=== PATIENT | female | born 1965 | race Caucasian/White ===

== ENCOUNTER 2024-05-19 18:50 | Inpatient (IN) | payer BC ==
[~2024-05-19] VITALS: Ht 162.6 cm; Wt 56.7 kg
[2024-05-19 19:12] LABS: BASOPHILS % (AUTO) 0.6 % (0.0-2.0); EOSINOPHILS % (AUTO) 0.6 % (0.0-7.0); HEMATOCRIT 39.8 % (31.2-41.9); HEMOGLOBIN 13.2 g/dL (10.9-14.3); LYMPHOCYTES # (AUTO) 1.6 K/uL (0.8-4.8); LYMPHOCYTES % (AUTO) 37.9 % (20.5-51.5); MEAN CORPUSCULAR HEMOGLOBIN 30.3 uug (24.7-32.8); MEAN CORPUSCULAR HGB CONC 33 g/dL (32.3-35.6); MEAN CORPUSCULAR VOLUME 91.3 fL (75.5-95.3); MONOCYTES # (AUTO) 0.7 K/uL (0.1-1.30); MONOCYTES % (AUTO) 16.5 % (0.0-11.0); NEUTROPHILS # (AUTO) 1.9 K/uL (1.8-8.9); NEUTROPHILS % (AUTO) 44.4 % (38.5-71.5); PLATELET COUNT (AUTO) 218 K/uL (179-408); RED BLOOD CELL COUNT(AUTO) 4.35 MIL/uL (3.63-4.92); RED CELL DISTRIBUTION WIDTH 14.9 % (12.3-17.7); WHITE BLOOD COUNT (AUTO) 4.2 K/uL (3.8-11.8)
[2024-05-19 19:15] LABS: DIFFERENTIAL COMMENT 1
[2024-05-19 19:19] LABS: BASOPHILS % (MANUAL) 0 % (0-2); EOSINOPHILS % (MANUAL) 1 % (0-8); LYMPHOCYTES % (MANUAL) 45 % (20-40); MONOCYTES % (MANUAL) 9 % (2-10); NEUTROPHILS % (MANUAL) 45 % (42-75)
[2024-05-19 19:20] LABS: CALCIUM 9.1 mg/dL (8.5-10.1); CARBON DIOXIDE 25 mmol/L (21-32); CHLORIDE 91 mmol/L (98-107); CREATININE 0.7 mg/dL (0.6-1.3); GLUCOSE 96 mg/dL (74-106); SODIUM SERUM 128 mmol/L (136-145); UREA NITROGEN, BLOOD 5 mg/dL (7-18)
[2024-05-19 19:24] LABS: MAGNESIUM 1.9 mg/dL (1.8-2.4); PHOSPHOROUS 2.8 mg/dL (2.5-4.9); POTASSIUM 2.6 mmol/L (3.5-5.1)
[2024-05-19 19:27] LABS: ALANINE AMINOTRANSFERASE 24 U/L (14-59); ALBUMIN 3.9 g/dL (3.4-5.0); ALKALINE PHOSPHATASE 54 U/L (50-136); ASPARTATE AMINOTRANSFERASE 17 U/L (15-37); BILIRUBIN,DIRECT 0.1 mg/dL (0.0-0.2); BILIRUBIN,TOTAL 0.4 mg/dL (0.2-1.0); TOTAL PROTEIN, SERUM 6.4 g/dL (6.4-8.2)
[2024-05-19] MEDS ORDERED: GABA-532 PO (19:40)
[2024-05-19] MEDS ORDERED: IBUP-76 PO (19:40)
[2024-05-19] MEDS ORDERED: MIRT-121 PO (19:40)
[2024-05-19] MEDS ORDERED: LISI10TA29 PO (19:40)
[2024-05-19] MEDS ORDERED: LINA145C PO (19:40)
[2024-05-19] MEDS ORDERED: CEFD300C3 PO (19:40)
[2024-05-19] MEDS ORDERED: MAGN100T PO (19:40)
[2024-05-19] MEDS ORDERED: POLY17PO4 PO (19:40)
[2024-05-19] MEDS ORDERED: DOCU-141 PO (19:40)
[2024-05-19] MEDS ORDERED: FLUO40CA49 PO (19:40)
[2024-05-19] MEDS ORDERED: OXCA150T5 PO (19:40)
[2024-05-19] MEDS ORDERED: POTASSIUM CHLORIDE 100 ML ONE (19:47)
[2024-05-19] MEDS ORDERED: POTASSIUM CHLORIDE 20 MEQ TAB.PRT.SR ONE (19:47)
[2024-05-19] MEDS: POTASSIUM CHLORIDE 20 MEQ TAB.PRT.SR PO ONE (19:48)
[2024-05-19] MEDS: POTASSIUM CHLORIDE 50 ML IV SCH (19:48)
[2024-05-19] MEDS ORDERED: LORAZEPAM 2 MG/1 ML VIAL ONE (20:12)
[2024-05-19] MEDS: LORAZEPAM 2 MG/1 ML VIAL IV ONE (20:20)
[2024-05-19 20:23] LABS: *BILIRUBIN,URIN 1+ (NEGATIVE); *BLOOD, URINE NEGATIVE (NEGATIVE); *CLARITY,URINE CLEAR (CLEAR); *COLOR,URINE YELLOW (YELLOW); *KETONES,URINE 3+ (NEGATIVE); *PROTEIN,URINE 1+ (NEGATIVE); *UROBILINOGEN,URINE 0.2 E.U./dl (NORMAL); LEUKOCYTE ESTERASE ,URINE TRACE (NEGATIVE); NITRITE, URINE NEGATIVE (NEGATIVE); UGLUCOSE NEGATIVE (NEGATIVE)
[2024-05-19 20:24] LABS: RBC,URINE 0-3 /HPF (0-3); WBC,URINE 0-3 /HPF (0-3)
[2024-05-19] MEDS: IV NORMAL SALINE 1000 ML BAG IV ONE (20:32)
[2024-05-19] MEDS: DICYCLOMINE HCL 20 MG/2 ML AMPUL IM SCH (21:18)
[2024-05-19] MEDS ORDERED: DICYCLOMINE HCL LIQ 10 MG/5 ML UDC ONE (21:21)
[2024-05-19] MEDS ORDERED: GABAPENTIN 100 MG CAPSULE PO PRN (21:30)
[2024-05-19] MEDS ORDERED: ACETAMINOPHEN 325 MG TABLET PO PRN (21:30)
[2024-05-19] MEDS ORDERED: ONDANSETRON 4 MG/2 ML VIAL IV PRN (21:30)
[2024-05-19] MEDS ORDERED: TEMAZEPAM 15 MG CAPSULE PO PRN (21:30)
[2024-05-19] MEDS ORDERED: LORAZEPAM 2 MG/1 ML VIAL IV PRN (21:30)
[2024-05-19] MEDS ORDERED: ENALAPRILAT DIHYDRATE 1.25 MG/1 ML VIAL IV PRN (21:45)
[2024-05-19] MEDS: MIRTAZAPINE 15 MG TABLET PO SCH (23:38)
[2024-05-20 00:29] VITALS: BP 122/71; TEMP 97.8; O2SAT 91
[2024-05-20] MEDS ORDERED: IV 0.9% SODIUM CHLORID+ 20 KCL 1,000 ML ONE (00:47)
[2024-05-20] MEDS: POTASSIUM CHLORIDE 20 MEQ in IV NS 1000 ML 1,000 ML IV PRN (00:54)
[2024-05-20] MEDS: HYDROCODONE/APAP 5-325MG TABLET PO PRN (01:02)
[2024-05-20 04:34] VITALS: BP 118/84; TEMP 97.7; O2SAT 94
[2024-05-20] MEDS: PANTOPRAZOLE SODIUM 40 MG TABLET.DR PO SCH (06:13)
[2024-05-20 07:19] LABS: BASOPHILS % (AUTO) 0.6 % (0.0-2.0); EOSINOPHILS % (AUTO) 0.9 % (0.0-7.0); HEMATOCRIT 38.3 % (31.2-41.9); HEMOGLOBIN 12.9 g/dL (10.9-14.3); LYMPHOCYTES # (AUTO) 1.4 K/uL (0.8-4.8); LYMPHOCYTES % (AUTO) 28.5 % (20.5-51.5); MEAN CORPUSCULAR HEMOGLOBIN 30.9 uug (24.7-32.8); MEAN CORPUSCULAR HGB CONC 34 g/dL (32.3-35.6); MEAN CORPUSCULAR VOLUME 92.1 fL (75.5-95.3); MONOCYTES # (AUTO) 0.5 K/uL (0.1-1.30); MONOCYTES % (AUTO) 10.9 % (0.0-11.0); NEUTROPHILS # (AUTO) 2.8 K/uL (1.8-8.9); NEUTROPHILS % (AUTO) 59.1 % (38.5-71.5); PLATELET COUNT (AUTO) 185 K/uL (179-408); RED BLOOD CELL COUNT(AUTO) 4.16 MIL/uL (3.63-4.92); RED CELL DISTRIBUTION WIDTH 14.6 % (12.3-17.7); WHITE BLOOD COUNT (AUTO) 4.8 K/uL (3.8-11.8)
[2024-05-20 07:36] LABS: DIFFERENTIAL COMMENT 1
[2024-05-20 07:38] LABS: BILIRUBIN,TOTAL 0.3 mg/dL (0.2-1.0); CALCIUM 7.7 mg/dL (8.5-10.1); CREATININE 0.5 mg/dL (0.6-1.3); MAGNESIUM 2.1 mg/dL (1.8-2.4); POTASSIUM 3.6 mmol/L (3.5-5.1); TOTAL PROTEIN, SERUM 5.5 g/dL (6.4-8.2)
[2024-05-20] MEDS: LISINOPRIL 10 MG TABLET PO SCH (08:28)
[2024-05-20] MEDS: FLUOXETINE HCL 20 MG CAPSULE PO SCH (08:29)
[2024-05-20] MEDS: LORAZEPAM 2 MG/1 ML VIAL IV PRN (08:30)
[2024-05-20 09:41] LABS: THYROID STIMULATING HORMONE 2.104 mIU/mL (0.358-3.740)
[2024-05-20 12:00] VITALS: BP 119/77; TEMP 97.6
[2024-05-20] MEDS: busPIRone 5 MG TABLET PO SCH (12:08)
[2024-05-20] MEDS: GABAPENTIN 300 MG CAPSULE PO PRN (13:03)
[2024-05-20] MEDS ORDERED: IOHEXOL 350 100 ML INFUS..BTL ONE (14:52)
[2024-05-20] MEDS ORDERED: IV NORMAL SALINE 250 ML IV ONE (14:52)
[2024-05-20] MEDS ORDERED: SWABABLE VALVE TRANSFER SET EA MC ONE (14:52)
[2024-05-20 15:22] LABS: *AMPHETAMINE, URINE NEGATIVE (NEGATIVE); *BARBITURATE, URINE POSITIVE (NEGATIVE); *BENZODIAZEPINE, URINE NEGATIVE (NEGATIVE); *CANNABINOID, URINE NEGATIVE (NEGATIVE); *COCCAINE, URINE NEGATIVE (NEGATIVE); *OPIATE, URINE POSITIVE (NEGATIVE); *PHENCYCLIDINE SCREEN,URINE NEGATIVE (NEGATIVE)
[2024-05-20 15:44] LABS: FENTANYL, URINE NEGATIVE (NEGATIVE)
[2024-05-20 16:00] VITALS: BP 109/67; TEMP 97; O2SAT 96
[2024-05-20] MEDS ORDERED: OXCA300T4 PO (16:53)
[2024-05-20] MEDS ORDERED: OXCA150T5 PO (16:53)
[2024-05-20 19:58] VITALS: BP 95/58; TEMP 98; O2SAT 94
[2024-05-20] MEDS: OXCARBAZEPINE 300 MG TABLET PO SCH (22:18)
[2024-05-21 00:44] VITALS: BP 104/67; TEMP 98.2; O2SAT 97
[2024-05-21 05:46] VITALS: BP 122/77; TEMP 97.7; O2SAT 96
[2024-05-21 06:42] LABS: BASOPHILS % (AUTO) 0.6 % (0.0-2.0); EOSINOPHILS # (AUTO) 0.1 K/uL (0.0-0.7); EOSINOPHILS % (AUTO) 2.7 % (0.0-7.0); HEMATOCRIT 37.9 % (31.2-41.9); LYMPHOCYTES # (AUTO) 1.6 K/uL (0.8-4.8); LYMPHOCYTES % (AUTO) 36.7 % (20.5-51.5); MEAN CORPUSCULAR HEMOGLOBIN 31.8 uug (24.7-32.8); MEAN CORPUSCULAR HGB CONC 34 g/dL (32.3-35.6); MEAN CORPUSCULAR VOLUME 92.9 fL (75.5-95.3); MONOCYTES # (AUTO) 0.7 K/uL (0.1-1.30); MONOCYTES % (AUTO) 14.8 % (0.0-11.0); NEUTROPHILS % (AUTO) 45.2 % (38.5-71.5); PLATELET COUNT (AUTO) 189 K/uL (179-408); RED BLOOD CELL COUNT(AUTO) 4.08 MIL/uL (3.63-4.92); RED CELL DISTRIBUTION WIDTH 15.3 % (12.3-17.7); WHITE BLOOD COUNT (AUTO) 4.5 K/uL (3.8-11.8)
[2024-05-21 06:59] LABS: DIFFERENTIAL COMMENT 1
[2024-05-21 07:13] LABS: ALBUMIN 2.7 g/dL (3.4-5.0); BILIRUBIN,DIRECT 0.1 mg/dL (0.0-0.2); BILIRUBIN,TOTAL 0.2 mg/dL (0.2-1.0); CREATININE 0.5 mg/dL (0.6-1.3); POTASSIUM 4.2 mmol/L (3.5-5.1); TOTAL PROTEIN, SERUM 5.3 g/dL (6.4-8.2)
[2024-05-21 08:10] LABS: AFP, TUMOR MARKER 9.1 ng/mL (0.0-9.2); CARBOHYDRATE ANTIGEN, 19-9 <2 U/mL (0-35); CARCINOEMBRYONIC AG (CEA) 5.5 ng/mL (0.0-4.7); HEPATITIS B CORE AB, IgM Negative (Negative); HEPATITIS B CORE AB, TOTAL Negative (Negative); HEPATITIS B SURFACE AB, QUAL Non Reactive (.); HEPATITIS B SURFACE AG Negative (Negative); HEPATITIS C VIRUS ANTIBODY Non Reactive (Non Reactive)
[2024-05-21] MEDS: OXCARBAZEPINE 150 MG TABLET PO SCH (08:37)
[2024-05-21] MEDS: MIRALAX 17 GM POWD.PACK PO PRN (10:15)
[2024-05-21] MEDS ORDERED: SWABABLE VALVE TRANSFER SET EA MC ONE (11:51)
[2024-05-21] MEDS ORDERED: IV NORMAL SALINE 250 ML IV ONE (11:51)
[2024-05-21] MEDS ORDERED: IOHEXOL 300MG/ML 100 ML INFUS..BTL ONE (11:51)
[2024-05-21] MEDS: PETROLATUM,WHITE JELLY 28.35 GM TUBE TP PRN (16:43)
[2024-05-21 20:00] VITALS: BP_SYST 119; BP_SYST 139; BP_DIAS 55; BP_DIAS 86; TEMP 97.8; TEMP 98.2; O2SAT 96; O2SAT 97
[2024-05-22 06:13] VITALS: BP 139/83; TEMP 97.6; O2SAT 96
[2024-05-22] MEDS: MAGNESIUM CITRATE 296 ML BOTTLE PO ONE (08:51)
[2024-05-22] MEDS: LACTULOSE 20 G/30 ML LIQUID UDC PO ONE (11:57)
[2024-05-22 12:00] VITALS: BP 151/92; TEMP 98.3; O2SAT 97
[2024-05-22] MEDS ORDERED: FLUO20CA42 PO (14:05)
[2024-05-22] MEDS ORDERED: OXCA300T4 PO (14:05)
[2024-05-22] MEDS ORDERED: PANT40TA49 PO (14:05)
[2024-05-22] MEDS ORDERED: GABA300C PO (14:05)
[2024-05-22] MEDS ORDERED: MIRT-93 PO (14:05)
[2024-05-22] MEDS ORDERED: LISI10TA29 PO (14:05)
[2024-05-22] MEDS ORDERED: POLY17PO4 PO (14:05)
[2024-05-22] MEDS ORDERED: OXCA150T5 PO (14:05)
[2024-05-22] MEDS ORDERED: BUSP5TAB3 PO (14:05)
[2024-05-22] MEDS: BISACODYL 10 MG SUPP.RECT RC ONE (15:30)
[2024-05-22 15:52] VITALS: BP 147/99; TEMP 98.2; O2SAT 96
== END 2024-05-22 19:04 | disposition home or self-care (01) | DRG 897 ==
LOC: ER 18:56 → TELE3 21:20 → MEDSURG3 05-21 09:00
PROVIDERS: ADMIT Internal Medicine; ATTEND Nurse Practitioner Acute Care
DX: F13.239 Sedative, hypnotic or anxiolytic dependence with withdrawal, unspecified (principal); E87.1 Hypo-osmolality and hyponatremia; R56.9 Unspecified convulsions; R16.0 Hepatomegaly, not elsewhere classified; D18.03 Hemangioma of intra-abdominal structures; E78.5 Hyperlipidemia, unspecified; M54.50 Low back pain, unspecified; F10.20 Alcohol dependence, uncomplicated; G89.29 Other chronic pain; F41.9 Anxiety disorder, unspecified; Z96.642 Presence of left artificial hip joint; Z72.0 Tobacco use; Z98.1 Arthrodesis status; K52.9 Noninfective gastroenteritis and colitis, unspecified; M81.0 Age-related osteoporosis without current pathological fracture; E87.6 Hypokalemia; E86.1 Hypovolemia; F39 Unspecified mood [affective] disorder; I10 Essential (primary) hypertension; R55 Syncope and collapse
CPT/HCPCS: 36415; 70450; 71045; 71260; 82105; 82378; 83735; 84100; 84443; 84484; 85025; 85730; 86301; 86704; 86705; 86706; 86803; 87340; 93307; G0378; J2060; J3480; J7040; Q9967